=== PATIENT | female | born 1955 | race Caucasian/White ===

== ENCOUNTER 2017-08-24 07:50 | Outpatient (CLI) | payer OTHER ==
[2017-08-24 11:54] LABS: BASOPHILS # (AUTO) 0.1 10^3/uL (0.0-0.1); BASOPHILS % (AUTO) 1.1 %; EOSINOPHILS # (AUTO) 0.2 10^3/uL (0.0-0.7); EOSINOPHILS % (AUTO) 3.5 %; HCT - HEMATOCRIT 40.9 % (37.0-47.0); HGB - HEMOGLOBIN 13.8 g/dL (12.0-16.0); LYMPHOCYTES % (AUTO) 44.1 %; MEAN CORPUSCULAR HEMOGLOBIN 29.9 pg (27.0-31.0); MEAN CORPUSCULAR HGB CONC 33.8 g/dL (32.0-36.0); MEAN CORPUSCULAR VOLUME 88.5 fL (81.0-99.0); MEAN PLATELET VOLUME 9.4 fL (7.9-10.8); MONOCYTES # (AUTO) 0.4 10^3/uL (0.0-1.0); MONOCYTES % (AUTO) 6.4 %; NEUTROPHILS % (AUTO) 44.9 %; RED BLOOD COUNT 4.63 10^6/uL (4.20-5.40); RED CELL DISTRIBUTION WIDTH 12.7 % (12.0-15.0); UNCORRECTED WHITE BLOOD COUNT 6.7 x10^3/uL; WHITE BLOOD COUNT 6.7 x10^3/uL (4.8-10.8)
[2017-08-24 12:16] LABS: ALBUMIN/GLOBULIN RATIO 1.6 (1.0-2.2); BILIRUBIN,TOTAL 0.6 mg/dL (0.2-1.0); BUN - BLOOD UREA NITROGEN 17 mg/dL (6-20); CALCIUM 9.4 mg/dL (8.5-10.3); CARBON DIOXIDE - CO2 26 mmol/L (21-32); CHLORIDE 106 mmol/L (101-111); CHOL/HDL RATIO 3.8 (<4.4); CHOLESTEROL 236 mg/dL; CREATININE 0.8 mg/dL (0.4-1.0); GFR - MDRD 73 (>89); GLUCOSE 100 mg/dL (70-100); HDL CHOLESTEROL 62 mg/dL; LDL/HDL RATIO 2.2 (<4.4); POTASSIUM 3.6 mmol/L (3.5-5.0); SODIUM 140 mmol/L (135-145); TOTAL PROTEIN 7.2 g/dL (6.7-8.2); TRIGLYCERIDES 183 mg/dL; VLDL CHOLESTEROL 37 mg/dL
== END 2017-08-24 07:51 | disposition home or self-care (01) ==
LOC: LAB.F 07:50
PROVIDERS: ATTEND Physician Assistant Medical
DX: M19.90 Unspecified osteoarthritis, unspecified site (principal); M81.0 Age-related osteoporosis without current pathological fracture; Z11.59 Encounter for screening for other viral diseases; Z72.89 Other problems related to lifestyle; E78.5 Hyperlipidemia, unspecified
CPT/HCPCS: 36415; 80053; 80061; 82306; 84443; 85025; 86803

== ENCOUNTER 2018-08-23 08:32 | Outpatient (CLI) | payer OTHER ==
[2018-08-23 17:55] LABS: BASOPHILS # (AUTO) 0.1 10^3/uL (0.0-0.1); BASOPHILS % (AUTO) 0.9 %; EOSINOPHILS # (AUTO) 0.2 10^3/uL (0.0-0.7); EOSINOPHILS % (AUTO) 3.6 %; HGB - HEMOGLOBIN 14.5 g/dL (12.0-16.0); LYMPHOCYTES # (AUTO) 2.4 10^3/uL (1.5-3.5); LYMPHOCYTES % (AUTO) 40.7 %; MEAN CORPUSCULAR HEMOGLOBIN 30.2 pg (27.0-31.0); MEAN CORPUSCULAR HGB CONC 33.9 g/dL (32.0-36.0); MEAN PLATELET VOLUME 8.9 fL (7.9-10.8); MONOCYTES # (AUTO) 0.4 10^3/uL (0.0-1.0); MONOCYTES % (AUTO) 6.5 %; NEUTROPHILS # (AUTO) 2.8 10^3/uL (1.5-6.6); NEUTROPHILS % (AUTO) 48.3 %; PLT - PLATELET COUNT 215 10^3/uL (130-450); RED BLOOD COUNT 4.79 10^6/uL (4.20-5.40); WHITE BLOOD COUNT 5.9 x10^3/uL (4.8-10.8)
[2018-08-23 18:28] LABS: ALBUMIN 4.6 g/dL (3.2-5.5); ALBUMIN/GLOBULIN RATIO 1.4 (1.0-2.2); ALKALINE PHOSPHATASE 42 IU/L (42-121); ALT ALANINE AMINOTRANSFERASE 22 IU/L (10-60); AST ASPARTATE AMINOTRANSFERASE 19 IU/L (10-42); BILIRUBIN,TOTAL 0.7 mg/dL (0.2-1.0); BUN - BLOOD UREA NITROGEN 16 mg/dL (6-20); CALCIUM 9.3 mg/dL (8.5-10.3); CARBON DIOXIDE - CO2 30 mmol/L (21-32); CHLORIDE 102 mmol/L (101-111); CHOL/HDL RATIO 3.7 (<4.4); CHOLESTEROL 244 mg/dL; CREATININE 0.7 mg/dL (0.4-1.0); GFR - MDRD 85 (>89); GLUCOSE 94 mg/dL (70-100); HDL CHOLESTEROL 66 mg/dL; LDL CHOLESTEROL,CALCULATED 146 mg/dL; LDL/HDL RATIO 2.2 (<4.4); SODIUM 138 mmol/L (135-145); TOTAL PROTEIN 7.9 g/dL (6.7-8.2); VLDL CHOLESTEROL 32 mg/dL
== END 2018-08-23 08:33 | disposition home or self-care (01) ==
LOC: LAB.F 08:32
PROVIDERS: ATTEND Physician Assistant Medical
DX: M81.0 Age-related osteoporosis without current pathological fracture (principal); E78.2 Mixed hyperlipidemia; Z79.899 Other long term (current) drug therapy
CPT/HCPCS: 36415; 80053; 80061; 82306; 83721; 84443; 85025

== ENCOUNTER 2018-08-31 11:26 | Outpatient (CLI) | payer OTHER ==
--- NOTE | 2018-08-31 13:42 | XRAY Report ---
Reason: DYSPNEA ON EXERTION Procedure Date: 08/31/2018 Accession Number: [id number] / [id number] Procedure: XR - Chest 2 View X-Ray CPT Code: 98285 FULL RESULT: EXAM: CHEST RADIOGRAPHY EXAM DATE: 08/31/2018 11:45 AM. CLINICAL HISTORY: DYSPNEA ON EXERTION. COMPARISON: None. TECHNIQUE: 2 views. FINDINGS: Lungs/Pleura: No focal opacities evident. No pleural effusion. No pneumothorax. Normal volumes. Mediastinum: Heart and mediastinal contours are unremarkable. Other: None. IMPRESSION: Normal 2-view chest radiography. RADIA
== END 2018-08-31 11:27 | disposition home or self-care (01) ==
LOC: DI 11:26
PROVIDERS: ATTEND Physician Assistant Medical
DX: R06.00 Dyspnea, unspecified (principal)
CPT/HCPCS: 71046

== ENCOUNTER 2018-10-10 09:21 | Outpatient (CLI) | payer OTHER ==
--- NOTE | 2018-10-11 11:11 | DEXA Report ---
Reason: MEDICATION USE/OSTEOPOROSIS Procedure Date: 10/10/2018 Accession Number: [id number] / [id number] Procedure: DEX - Dexa Spine and/or Hip CPT Code: FULL RESULT: EXAM: Dexa Spine and/or Hip DATE: 10/10/2018 9:53 AM CLINICAL HISTORY: MEDICATION USE/OSTEOPOROSIS TECHNIQUE: Dual energy x-ray absorptiometry (DXA) was performed on a [employer] System. Regions measured are the AP Spine, femoral neck, and if needed forearm. COMPARISON: None. In accordance with the International Society for Clinical Densitometry (ISCD) guidelines, data from previous exams may be reanalyzed using current recommendations and techniques. This is done to allow a more accurate basis for comparison with the current study. FINDINGS: The data for the lumbar spine is as follows: BMD (g/cm/cm) T-SCORE Z-SCORE REGION L1 0.833 -2.5 -1.4 L2 0.964 -2.0 -0.9 L3 1.027 -1.4 -0.4 L4 0.881 -2.7 -1.6 TOTAL 0.927 -2.1 -1.1 NOTE: All evaluable vertebrae are used for classification The data for the hip is as follows: BMD (g/cm/cm) T-SCORE Z-SCORE REGION Neck 0.904 -1.0 0.2 TOTAL 0.932 -0.6 0.2 NOTE: The femoral neck or total proximal femur, whichever is lowest, is used for classification. DXA RESULTS SUMMARY: Spine SCAN DATE AGE BMD CHANGE VS CHANGE VS PREVIOUS PREVIOUS % 12/10[birth year]2018 [age] 0[age]927 0.021 2.3 10/29/2016 [age] 0[age]906 * Denotes significant change at the 95% confidence level. Denotes dissimilar scan types or analysis methods. DXA RESULTS SUMMARY: Hip SCAN DATE AGE BMD CHANGE VS CHANGE VS PREVIOUS PREVIOUS % [birth year][age]10[birth year]2018 63.2 0.932 0.028 3.1 10/29/2016 61.2 0.904 * Denotes significant change at the 95% confidence level. Denotes dissimilar scan types or analysis methods. IMPRESSION: THE WHO CLASSIFICATION BASED ON THE INTERNATIONAL REFERENCE STANDARD IS OSTEOPENIA. THE FRACTURE RISK IS INCREASED. RECOMMENDATION: Patients with diagnosis of osteoporosis or osteopenia should have regular bone mineral density assessment. For those eligible for Medicare, routine testing is allowed once every 2 years. Testing frequency can be increased for patients who have rapidly progressing disease or for those who are receiving medical therapy to restore bone mass. COMMENT: World Health Organization (WHO) definitions for osteoporosis and osteopenia: NORMAL BMD: T-score at -1.0 or higher, fracture risk is low OSTEOPENIA BMD: T-score between -1.0 and -2.5, fracture risk is increased. OSTEOPOROSIS BMD: T-score at -2.5 or lower, fracture risk is high. National Osteoporosis Foundation recommends: 1. Obtain adequate dietary calcium (at least 1200 mg per day) and vitamin D (400-800 international units per day). 2. Participate, as appropriate, in regular weightbearing and muscle-strengthening exercise. 3. Avoid tobacco use and reduce alcohol and caffeine intake. 4. For more detailed information see the website at www.NOF.org.
== END 2018-10-10 09:22 | disposition home or self-care (01) ==
LOC: DI 09:21
PROVIDERS: ATTEND Physician Assistant Medical
DX: M85.89 Other specified disorders of bone density and structure, multiple sites (principal); Z78.0 Asymptomatic menopausal state; Z79.899 Other long term (current) drug therapy
CPT/HCPCS: 77080

== ENCOUNTER 2018-10-10 09:23 | Outpatient (CLI) | payer OTHER ==
--- NOTE | 2018-10-11 10:07 | Mammography Report ---
Reason: SCREENING MAMMO Procedure Date: 10/10/2018 Accession Number: [id number] / [id number] Procedure: DELMAR - Screening Mammo w/Anuel CPT Code: FULL RESULT: EXAM: Screening Mammo w/Anuel DATE: 10/10/2018 10:25 AM CLINICAL HISTORY: Screening encounter. History of early menses and late childbearing. TECHNIQUE: Bilateral CC and MLO views were obtained. COMPARISON: 10/07/2017 through 08/16/2014. FINDINGS: The breasts demonstrate heterogeneously dense fibroglandular parenchyma bilaterally. A well circumscribed hypodense upper outer left breast nodule is stable dating back to 2013, typically benign. No suspicious masses, clustered microcalcifications, or regions of architectural distortion are identified. IMPRESSION: Benign findings RECOMMENDATION: Routine annual screening unless otherwise clinically indicated. BIRADS CATEGORY 2: Benign findings STANDARD QUALIFYING STATEMENTS: 1. This examination was not reviewed with the aid of Computer-Aided Detection (CAD). 2. A negative or benign imaging report should not preclude biopsy if clinically suspicious findings are present. 3. Dense breasts may obscure an underlying neoplasm. 4. This examination was reviewed with the aid of 3D breast imaging (tomosynthesis).
== END 2018-10-10 09:24 | disposition home or self-care (01) ==
LOC: DI 09:23
PROVIDERS: ATTEND Physician Assistant Medical
DX: Z12.31 Encounter for screening mammogram for malignant neoplasm of breast (principal)
CPT/HCPCS: 77063; 77067

== ENCOUNTER 2018-10-12 10:24 | Outpatient (CLI) | payer OTHER ==
--- NOTE | 2018-10-12 16:44 | CARDIAC PROCEDURE NOTE ---
DATE OF SERVICE: 10/12/2018 Physician: Zulema Navarrete MD, [facility] DATE OF SERVICE: 10/12/2018 INDICATIONS: Dyspnea on exertion. CARDIAC RISK FACTORS: Postmenopausal status, hyperlipidemia, family history of heart disease in her mother. SUMMARY: After signing informed consent, the patient underwent a Carlos treadmill stress test with Echo imaging. Resting heart rate: 83, peak heart rate: 148 (93% predicted maximum heart rate for age). Resting blood pressure: 144/65, peak blood pressure: 170/70. The patient exercised for 4 minutes and 32 seconds on a Carlos protocol treadmill stress test. Peak heart rate achieved was 148 (93% PMHR), 6.3 METS. The patient developed mild to moderate shortness of breath, no chest pain. Oxygen saturation was 99% on room air at peak. RESTING EKG: Normal sinus rhythm, early repolarization. PEAK EKG: No ischemic ST segments or T-wave changes. IMPRESSION: 1. Fair exercise tolerance. 2. No ischemic changes by EKG criteria at an adequate peak heart rate. 3. Echo images reported separately. cc: Renea Moya PA-C TD: 10/12/2018 16:22 MTDD
== END 2018-10-12 10:25 | disposition home or self-care (01) ==
LOC: DI 10:24
PROVIDERS: ATTEND Physician Assistant Medical
DX: R06.09 Other forms of dyspnea (principal); E78.2 Mixed hyperlipidemia
CPT/HCPCS: 93351

== ENCOUNTER 2018-10-19 08:48 | Outpatient (CLI) | payer OTHER ==
[2018-10-19 18:28] LABS: ALT ALANINE AMINOTRANSFERASE 23 IU/L (10-60); AST ASPARTATE AMINOTRANSFERASE 18 IU/L (10-42); CHOL/HDL RATIO 3.5 (<4.4); CHOLESTEROL 226 mg/dL; HDL CHOLESTEROL 64 mg/dL; LDL CHOLESTEROL,CALCULATED 135 mg/dL; LDL/HDL RATIO 2.1 (<4.4); VLDL CHOLESTEROL 27 mg/dL
== END 2018-10-19 08:49 | disposition home or self-care (01) ==
LOC: LAB.F 08:48
PROVIDERS: ATTEND Physician Assistant Medical
DX: E78.2 Mixed hyperlipidemia (principal); Z79.899 Other long term (current) drug therapy
CPT/HCPCS: 36415; 80061; 83721; 84450; 84460

== ENCOUNTER 2018-12-09 08:37 | Outpatient (CLI) | payer OTHER ==
[2018-12-09 14:14] LABS: ALT ALANINE AMINOTRANSFERASE 19 IU/L (10-60); AST ASPARTATE AMINOTRANSFERASE 18 IU/L (10-42); LDL CHOLESTEROL,DIRECT 106 mg/dL
== END 2018-12-09 08:38 | disposition home or self-care (01) ==
LOC: LAB.F 08:37
PROVIDERS: ATTEND Physician Assistant Medical
DX: E78.2 Mixed hyperlipidemia (principal); Z79.899 Other long term (current) drug therapy
CPT/HCPCS: 36415; 83721; 84450; 84460

== ENCOUNTER 2019-01-16 06:11 | Day surgery (SDC) | payer OTHER ==
[2019-01-16] MEDS ORDERED: LACTATED RINGERS 1,000 ML IV ONE (06:32)
[2019-01-16] MEDS ORDERED: MIDAZOLAM 2 MG/2 ML VIAL IVP ONE (07:30)
[2019-01-16] MEDS ORDERED: fentaNYL 250 MCG/5 ML VIAL IVP ONE (07:30)
[2019-01-16 08:29] VITALS: BP 115/67
== END 2019-01-16 06:12 | disposition home or self-care (01) ==
LOC: SDS 06:11
PROVIDERS: ATTEND Surgery
PROC: 0DBN8ZX Excision of Sigmoid Colon, Via Natural or Artificial Opening Endoscopic, Diagnostic (ICD-10-PCS; 2019-01-16)
PROC: 0DBH8ZX Excision of Cecum, Via Natural or Artificial Opening Endoscopic, Diagnostic (ICD-10-PCS; principal; 2019-01-16 07:30)
DX: K52.89 Other specified noninfective gastroenteritis and colitis (principal); K57.30 Diverticulosis of large intestine without perforation or abscess without bleeding; K64.8 Other hemorrhoids; Z80.0 Family history of malignant neoplasm of digestive organs
CPT/HCPCS: 45380; J3010; J7120

== ENCOUNTER 2019-04-07 10:58 | Outpatient (CLI) | payer OTHER ==
--- NOTE | 2019-04-07 12:08 | XRAY Report ---
Reason: UNSPECIFIED OSTEOARTHRITIS,UNSPECIFIED SITE Procedure Date: 04/07/2019 Accession Number: [id number] / [id number] Procedure: XR - Hand 3 View BILAT CPT Code: FULL RESULT: EXAMS: 1. Right Hand Radiography 2. Left Hand Radiography EXAM DATE: 04/07/2019 11:16 AM. CLINICAL HISTORY: Pain in both hands, more intense around MIP. COMPARISON: None. TECHNIQUE: 3 views each hand. FINDINGS: Right: Bones: Normal. No fractures or bone lesions. Joints: Erosive joint space loss with subtle gullwing appearance predominantly in the proximal interphalangeal joints, most pronounced in the fifth ray, less when compared to left. Soft Tissues: Normal. No soft tissue swelling. Left: Bones: Normal. No fractures or bone lesions. Joints: There is joint space loss predominantly at the proximal interphalangeal joints, most pronounced in the second and third rays with a so-called gullwing appearance including sclerosis and bone loss. Soft Tissues: Normal. No soft tissue swelling. IMPRESSION: Degenerative changes with an erosive component leading to an early gullwing appearance, most consistent with erosive osteoarthritis and not degenerative osteoarthrosis alone. RADIA
== END 2019-04-07 10:59 | disposition home or self-care (01) ==
LOC: DI 10:58
PROVIDERS: ATTEND Internal Medicine
DX: M19.042 Primary osteoarthritis, left hand (principal); M19.041 Primary osteoarthritis, right hand

== ENCOUNTER 2019-12-07 14:47 | Outpatient (CLI) | payer OTHER ==
--- NOTE | 2019-12-19 14:02 | Mammography Report ---
Reason: ROUTINE MAMMO Procedure Date: 12/07/2019 Accession Number: [id number] / [id number] Procedure: DELMAR - Screening Mammo w/Anuel CPT Code: Final Report FULL RESULT: EXAM: Screening Mammo w/Anuel DATE: 12/07/2019 3:22 PM CLINICAL HISTORY: Screening encounter. History of early menses and late childbearing. TECHNIQUE: (B) - Bilateral CC and MLO views were obtained. COMPARISON: 10/10/2018 through 03/05/2011. PARENCHYMAL PATTERN: (D) - The breasts demonstrate heterogeneously dense fibroglandular parenchyma bilaterally. FINDINGS: There are no suspicious masses, calcifications, or areas of distortion. IMPRESSION: Negative examination. BI-RADS category 1. RECOMMENDATION: (ANNUAL) - Recommend routine annual screening mammography. BI-RADS CATEGORY: (1) - Negative. STANDARD QUALIFYING STATEMENTS: 1. This examination was not reviewed with the aid of Computer-Aided Detection (CAD). 2. A negative or benign imaging report should not preclude biopsy if clinically suspicious findings are present. 3. Dense breasts may obscure an underlying neoplasm. 4. This examination was reviewed with the aid of 3D breast imaging (tomosynthesis).
== END 2019-12-07 14:48 | disposition home or self-care (01) ==
LOC: DI 14:47
DX: Z12.31 Encounter for screening mammogram for malignant neoplasm of breast (principal)
CPT/HCPCS: 77063; 77067

== ENCOUNTER 2021-10-01 08:52 | Outpatient (CLI) | payer OTHER ==
--- NOTE | 2021-10-02 13:28 | Mammography Report ---
BILATERAL DIGITAL SCREENING MAMMOGRAM 3D/2D: 10/01/2021 CLINICAL: Routine screening. Comparison is made to exams dated: 12/07/2019 mammogram, 10/10/2018 mammogram, and 10/07/2017 mammogram - [facility]. The tissue of both breasts is heterogeneously dense. This may lower the sensitivity of mammography. No significant masses, calcifications, or other findings are seen in either breast. There has been no significant interval change. IMPRESSION: NEGATIVE There is no mammographic evidence of malignancy. A 1 year screening mammogram is recommended. This exam was interpreted at Station ID: [id number]. NOTE: For mammograms, a report in lay terms will be sent to the patient. Approximately 15% of breast malignancies will not be visualized mammographically. In the management of a palpable breast mass, a negative mammogram must not discourage biopsy of a clinically suspicious lesion. Electronically Signed By: Arnulfo Ly M.D. ar/penrad:10/01/2021 10:22:45 ACR BI-RADS Category 1: Negative 3341F PARENCHYMAL PATTERN: (D) - The breast(s) demonstrate(s) heterogeneously dense fibroglandular rom ingram. BI-RADS CATEGORY: (1) - 1 RECOMMENDATION: (ANNUAL) - Recommend routine annual screening mammography. [id number] 1 year screening LATERALITY: (B)
== END 2021-10-01 08:53 | disposition home or self-care (01) ==
LOC: DI.S 08:52
PROVIDERS: ATTEND Nurse Practitioner Family
DX: Z12.31 Encounter for screening mammogram for malignant neoplasm of breast (principal)

== ENCOUNTER 2023-03-25 15:09 | Outpatient (CLI) | payer MEDICARE ==
--- NOTE | 2023-03-25 16:17 | Ultrasound Report ---
PROCEDURE: Pelvic w/Transvaginal INDICATIONS: ABN UTERINE BLEED TECHNIQUE: Real-time scanning was performed of the pelvic organs, with image documentation. Additional endovagi nal scanning was necessary due to incomplete visualization of the adnexal and endometrial structures by transabdominal scanning. COMPARISON: None. FINDINGS: Uterus: Uterus is retroverted and normal in size at 8.1 x 5.2 x 7.0 cm. The myometrium is heterogen eous. The endometrium measures 6.7 mm in combined thickness. Heterogeneous appearance with small cy stic regions. Multiple uterine fibroids, mostly intramural, largest measuring 4.4 cm. Ovaries: The right ovary measures 2 x 1.1 x 0.9 cm, with a calculated ovarian volume of 1 cc. The l eft ovary measures 5.7 x 3.6 x 4.3 cm, with a calculated ovarian volume of 47 cc. Left ovarian cystic lesion with an avascular mural nodule measuring 5.8 x 3.2 x 3.8 cm. Other: No pathologic free abdominal or pelvic fluid. IMPRESSION: Endometrium measures 7 mm, with a heterogeneous appearance and contains internal cystic change. Diffe rential is hypertrophy versus malignancy. Tissue sampling should be considered. O-RADS 4 left ovarian lesion. Recommend MRI (gynecologic protocol) and gynecologic referral. Reviewed by: Derek Flores on 03/25/2023 3:16 PM SHIRLEY Approved by: Derek Flores on 03/25/2023 3:16 PM SHIRLEY Station ID: [id number]
== END 2023-03-25 15:10 | disposition home or self-care (01) ==
LOC: DI 15:09
PROVIDERS: ATTEND Physician Assistant
DX: N85.8 Other specified noninflammatory disorders of uterus (principal); N93.9 Abnormal uterine and vaginal bleeding, unspecified

== ENCOUNTER 2023-06-01 13:47 | Outpatient (CLI) | payer MEDICARE ==
--- NOTE | 2023-06-01 17:01 | DEXA Report ---
PROCEDURE: Dexa Spine and/or Hip INDICATIONS: POST MENOPAUSAL TECHNIQUE: Dual energy x-ray absorptiometry (DXA) was performed on a [employer] System. Regions measur ed are the AP Spine, femoral neck, and if needed forearm. COMPARISON: 10/10/2018, 10/29/2016 FINDINGS: Lumbar Spine: Bone Mineral Density 0.9 g/cm/cm,T score -2.1. Osteopenia Left Femoral Neck: Bone Mineral Density 0.9 g/cm/cm, T score -0.8. Normal bone density Impression: By WHO criteria, this patient has osteopenia of the lumbar spine, and normal left femoral neck bone d ensity Patients with diagnosis of osteoporosis or osteopenia should have regular bone mineral density assess ment. For those eligible for Medicare, routine testing is allowed once every 2 years. Testing frequ ency can be increased for patients who have rapidly progressing disease or for those who are receivin g medical therapy to restore bone mass. Reviewed by: Brenda Ko MD on 06/01/2023 4:59 PM PDT Approved by: Brenda Ko MD on 06/01/2023 4:59 PM PDT Station ID: [id number]
== END 2023-06-01 13:48 | disposition home or self-care (01) ==
LOC: DI 13:47
PROVIDERS: ATTEND Internal Medicine
DX: M85.88 Other specified disorders of bone density and structure, other site (principal); Z78.0 Asymptomatic menopausal state

== ENCOUNTER 2023-06-01 13:49 | Outpatient (CLI) | payer MEDICARE ==
--- NOTE | 2023-06-02 12:05 | Mammography Report ---
BILATERAL DIGITAL SCREENING MAMMOGRAM 3D/2D: 06/01/2023 CLINICAL: Routine screening. Comparison is made to exams dated: 10/01/2021 mammogram, 12/07/2019 mammogram, and 10/10/2018 mammogram - [facility]. Both breasts are heterogeneously dense, which may obscure small masses (category c / 51-75% glandular tissue). No significant masses, calcifications, or other findings are seen in either breast. There has been no significant interval change. IMPRESSION: NEGATIVE There is no mammographic evidence of malignancy. A 1 year screening mammogram is recommended. Based on the Tyrer Cuzick model (a risk assessment model) the patients lifetime risk is 13.2% and he r 10 year risk is 6.5%. According to the ACR, ACS, and NCCN guidelines, an annual breast MRI exam hawa ng with mammogram is recommended if the patients lifetime risk is 20% or greater. This exam was interpreted at Station ID: [id number]. NOTE: For mammograms, a report in lay terms will be sent to the patient. Approximately 15% of breast malignancies will not be visualized mammographically. In the management of a palpable breast mass, a negative mammogram must not discourage biopsy of a clinically suspicious lesion. Electronically Signed By: Arnulfo sultana/kg:06/01/2023 15:19:41 letter sent: No_Letter ACR BI-RADS Category 1: Negative 3341F PARENCHYMAL PATTERN: (D) - The breast(s) demonstrate(s) heterogeneously dense fibroglandular rom ingram. BI-RADS CATEGORY: (1) - 1 Mammogram [id number] 1 year screening LATERALITY: (B)
== END 2023-06-01 13:50 | disposition home or self-care (01) ==
LOC: DI 13:49
PROVIDERS: ATTEND Internal Medicine
DX: Z12.31 Encounter for screening mammogram for malignant neoplasm of breast (principal)